=== PATIENT | female | born 1935 | race Caucasian/White ===

== ENCOUNTER → 2017-01-15 | Outpatient (CLI) | payer MEDICARE, OTHER ==
--- NOTE | 2017-01-18 12:07 | XCELERA REPORT ---
[address] [address] Lower Extremity Arterial Evaluation Name: LIBBY ROSAS Age: 81 yrs Gender: Female : 1935 Patient Status: Outpatient Patient Location: Study Date: 01/15/2017 09:16 AM Procedure: A color flow and duplex scan of the lower extremity arteries was performed bilaterally with velocity and waveform anaylsis. Ankle brachial indicies performed. Reason For Study: PAIN Ordering Physician: STEPHANIE MUSE Performed By: Jalil Maloney Measurements and Calculations Right Left UX INFORMATION ARCHITECT PSV 124.9 165.9 cm/sec Prox PFA PSV -121.8 -184.1 cm/sec Prox SFA PSV 83.3 cm/sec Dist SFA PSV -129.5 -85.2 cm/sec Dist Pop A PSV 108.1 241.0 cm/sec Dist JESSE PSV 114.4 38.5 cm/sec Mid ENTRY LEVEL MECHANICAL ENGINEER PSV 30.3 cm/sec Dist ENTRY LEVEL MECHANICAL ENGINEER PSV 88.0 cm/sec Tom Pedis PSV 91.3 30.0 cm/sec Right Side Arterial Evaluation Normal velocity and triphasic waveforms noted from the Common Femoral artery to the Anterior Tibial artery. Occlusion in the Posterior Tibial artery. Occlusion at the Posterior Tibial artery. Ankle Brachial index is 1.10. Left Side Arterial Evaluation Normal velocity and triphasic waveforms noted in the Common Femoral artery. 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 severe spectral broadening and reduced velocity to the infrageniculate vessels. 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 Ankle Brachial index is 0.69. Interpretation Summary Mild hemodynamically significant lesions in the right lower extremity only, on duplex imaging, at rest. Severe hemodynamically significant lesions in the left lower extremity only, on duplex imaging, at rest. : STEPHANIE MUSE > Jose Baez
--- NOTE | 2017-01-18 12:10 | XCELERA REPORT ---
[address] [address] Lower Extremity Venous Evaluation Name: LIBBY ROSAS Age: 81 yrs Gender: Female : 1935 Patient Status: Outpatient Patient Location: Study Date: 01/15/2017 09:36 AM Procedure: A bilateral duplex scan of the lower extremity veins was performed. The evaluation included responses to compression and other maneuvers with patient in the supine and standing positions to assess venous insufficiency. Reason For Study: PAIN Ordering Physician: STEPHANIE MUSE Performed By: Jalil Maloney Right Sided Venous Evaluation Deep venous system evaluatiion shows patent veins with no obstruction or significant reflux identified. Sapheno Femoral junction: no reflux. Femoral vein reflux: no reflux. Greater Saphenous vein, Proximal thigh: reflux: no reflux. Greater Saphenous vein, Distal thigh: reflux: no reflux. Greater Saphenous vein, Proximal below knee: reflux: no reflux. No significant Perforators identified. Left Sided Venous Evaluation Deep venous system evaluatiion shows patent veins with no obstruction or significant reflux identified. Sapheno Femoral junction: no reflux. Femoral vein reflux: no reflux. Greater Saphenous vein, Proximal thigh: reflux: no reflux. Greater Saphenous vein, Distal thigh: reflux: no reflux. Greater Saphenous vein, Proximal below knee: reflux: no reflux. No significant Perforators identified. Interpretation Summary No duplex evidence of DVT or obstruction in the bilateral lower extremities. No significant deep or superficial reflux identified. : STEPHANIE MUSE > Jose Baez
== END ==
LOC: SP 09:04
PROVIDERS: ATTEND Student in an Organized Health Care Education/Training Program
DX: I74.8 Embolism and thrombosis of other arteries (principal)
CPT/HCPCS: 93925; 93970